=== PATIENT | female | born 1960 | race Caucasian/White ===

== ENCOUNTER → 2019-06-20 12:26 | Outpatient (CLI) | payer MEDICARE ==
[2019-06-20 12:58] LABS: BASOPHILS 0.3 % (0-2); EOSINOPHILS 0 % (0-7); HEMATOCRIT 42.9 % (36.0-48.0); HEMOGLOBIN 13.6 g/dL (12-16); IMMATURE GRANULOCYTES 0.2 % (0-5); LYMPHOCYTES 21.1 % (15-50); MCH 31.1 pg (26.0-34.0); MCHC 31.7 g/dL (31.0-37.0); MCV 97.9 fL (80.0-100.0); MEAN PLATELET VOLUME 8.6 fL (7.4-10.4); MONOCYTES 4.3 % (2-11); NEUTROPHILS 74.1 % (40-80); PLATELET COUNT 134 10x3/uL (130-400); RBC 4.38 10x6/uL (4.00-5.40); RDW 13.3 % (11.5-14.5); WBC 6.3 10x3/uL (4.8-10.8)
[2019-06-20 13:20] LABS: CREATININE - URINE 52.4 mg/dL (30-125); PRO/CRE RATIO URINE 0.2 mg/g; PROTEIN - URINE 8.3 mg/dL (0.0-11.9)
[2019-06-20 13:52] LABS: ANION GAP 11.4 mmol/L (8-16); BILIRUBIN - TOTAL 0.35 mg/dL (0.2-1.3); CALCIUM 9.4 mg/dL (8.5-10.1); CARBON DIOXIDE 27.7 mmol/L (21.0-32.0); CHOL - HDL RATIO 4.2 ratio (2.3-4.1); CREATININE - SERUM 1.3 mg/dL (0.6-1.3); LDL-HDL RATIO 2.2 ratio (1.5-3.5); MAGNESIUM - SERUM 1.9 mg/dL (1.8-2.4); PHOSPHOROUS 3.5 mg/dL (2.5-4.9); POTASSIUM - SERUM 4.1 mmol/L (3.5-5.1)
[2019-06-20 14:36] LABS: BILIRUBIN NEGATIVE (NEGATIVE); GLUCOSE NEGATIVE (NEGATIVE); KETONE NEGATIVE (NEGATIVE); NITRITE NEGATIVE (NEGATIVE); UROBILINOGEN NORMAL (NORMAL); WHITE CELLS - URINE 0-5 /hpf (NEGATIVE)
[2019-06-20 14:37] LABS: BACTERIA FEW /hpf (NEGATIVE); EPITHELIAL CELLS 0-5 /hpf (0-5); RED CELLS - URINE RARE /hpf (0-5)
== END | disposition home or self-care (01) ==
LOC: D.LAB 12:26
DX: N18.3 Chronic kidney disease, stage 3 (moderate) (principal); N25.81 Secondary hyperparathyroidism of renal origin; E78.5 Hyperlipidemia, unspecified; E55.9 Vitamin D deficiency, unspecified

== ENCOUNTER 2019-08-10 10:17 | Emergency (ER) | payer MEDICARE ==
[~2019-08-10] VITALS: Ht 160 cm; Wt 97.5 kg
[2019-08-10 10:28] VITALS: Ht 160 cm; Wt 97.5 kg
[2019-08-10] MEDS ORDERED: WELLBUTRIN XL150 M1 PO ×2 (10:31→10:59)
[2019-08-10] MEDS ORDERED: BUSPAR5 MG PO ×2 (10:31→10:59)
[2019-08-10] MEDS ORDERED: BENZTROPINE MESY1 MG PO ×2 (10:32→10:59)
[2019-08-10] MEDS ORDERED: SEROQUEL100 MG PO ×2 (10:32→10:59)
[2019-08-10 11:12] VITALS: BP 125/71
== END 2019-08-10 11:14 | disposition home or self-care (01) ==
LOC: D.ER 10:17
DX: Z76.0 Encounter for issue of repeat prescription (principal)

== ENCOUNTER 2019-09-15 09:34 | Emergency (ER) | payer MEDICARE ==
[~2019-09-15] VITALS: Ht 160 cm; Wt 90.9 kg
[~2019-09-15 09:34] MED LIST: BENZTROPINE MESY1 MG PO; BUSPAR5 MG PO; SEROQUEL100 MG PO; WELLBUTRIN XL150 M1 PO
[2019-09-15 09:48] VITALS: Ht 160 cm; Wt 90.9 kg
[2019-09-15] MEDS ORDERED: WELLBUTRIN XL150 M1 PO (10:32)
[2019-09-15] MEDS ORDERED: BUSPAR5 MG PO (10:32)
[2019-09-15] MEDS ORDERED: BENZTROPINE MESY1 MG PO (10:32)
[2019-09-15] MEDS ORDERED: SEROQUEL100 MG PO ×2 (10:32)
[2019-09-15 10:42] VITALS: BP 137/56
== END 2019-09-15 10:43 ==
LOC: D.ER 09:34
DX: F31.9 Bipolar disorder, unspecified (principal); Z76.0 Encounter for issue of repeat prescription

== ENCOUNTER 2019-10-12 14:12 | Emergency (ER) | payer MEDICARE ==
[~2019-10-12] VITALS: Ht 160 cm; Wt 90.9 kg
[2019-10-12 14:31] VITALS: Ht 160 cm; Wt 90.9 kg
[2019-10-12 18:30] VITALS: BP 104/67
[2019-10-12] MEDS ORDERED: WELLBUTRIN XL150 M1 PO (18:36)
[2019-10-12] MEDS ORDERED: SEROQUEL100 MG PO (18:36)
[2019-10-12] MEDS ORDERED: BUSPAR5 MG PO (18:36)
[2019-10-12] MEDS ORDERED: BENZTROPINE MESY1 MG PO (18:36)
== END 2019-10-12 18:45 | disposition home or self-care (01) ==
LOC: D.ER 14:12
DX: Z76.0 Encounter for issue of repeat prescription (principal)